=== PATIENT | female | born 1960 | race Two or more races ===

== ENCOUNTER 2022-12-13 14:05 | Outpatient (CLI) | payer OTHER | END 2022-12-13 14:11 | disposition home or self-care (01) | LOC: MAMO-SONO 14:05 | PROVIDERS: ATTEND General Practice | DX: N64.4 Mastodynia (principal) ==

== ENCOUNTER 2023-07-01 09:00 | Outpatient (CLI) | payer OTHER | END 2023-07-01 09:07 | disposition home or self-care (01) | LOC: RX STUDY 09:00 | PROVIDERS: ATTEND Internal Medicine | DX: R13.12 Dysphagia, oropharyngeal phase (principal) ==

== ENCOUNTER 2025-07-31 09:36 | Outpatient (CLI) | payer OTHER | END 2025-07-31 09:45 | disposition home or self-care (01) | LOC: MAMO-SONO 09:36 | DX: Z12.31 Encounter for screening mammogram for malignant neoplasm of breast (principal) ==